=== PATIENT | female | born 1980 | race Caucasian/White ===

== ENCOUNTER 2019-03-09 11:09 | Emergency (ER) | payer SELFPAY ==
[~2019-03-09] VITALS: Ht 165.1 cm; Wt 90.7 kg
[2019-03-09] MEDS ORDERED: ACETAMINOPHEN 325 MG TAB PO ONE (12:00)
[2019-03-09 14:23] VITALS: BP 106/51
== END 2019-03-09 14:34 | disposition home or self-care (01) ==
LOC: ER 11:09
DX: H11.31 Conjunctival hemorrhage, right eye (principal)